=== PATIENT | female | born 1970 | race American Indian/Alaskan Native ===

== ENCOUNTER 2020-12-29 10:50 | Emergency (ER) | payer OTHER ==
[~2020-12-29] VITALS: Ht 167.6 cm; Wt 104.3 kg
== END 2020-12-29 11:25 | disposition home or self-care (01) ==
LOC: ER 10:50
DX: L25.9 Unspecified contact dermatitis, unspecified cause (principal); Z88.8 Allergy status to other drugs, medicaments and biological substances
CPT/HCPCS: 99282

== ENCOUNTER 2023-07-30 18:39 | Emergency (ER) | payer OTHER ==
[~2023-07-30] VITALS: Ht 170.2 cm; Wt 104.3 kg
[~2023-07-30 18:39] MED LIST: Amoxicillin875 MG PO
[2023-07-30] MEDS ORDERED: Prozac40 MG PO (18:48)
[2023-07-30 22:27] VITALS: BP 185/119
== END 2023-07-30 22:42 | disposition home or self-care (01) ==
LOC: ER 18:39
DX: L50.0 Allergic urticaria (principal); Z88.8 Allergy status to other drugs, medicaments and biological substances; Z79.899 Other long term (current) drug therapy
CPT/HCPCS: 96374; 96375; 99283-25; J1100; J1200; J1885